=== PATIENT | male | born 1955 | race Two or more races ===

== ENCOUNTER 2017-01-27 17:43 | Emergency (ER) | payer SELFPAY ==
[~2017-01-27] VITALS: Ht 180.3 cm; Wt 77.1 kg
--- NOTE | 2017-01-27 17:56 | Emergency Room Report ---
History of Present Illness General Chief Complaint: General Complaint Source: EMS Present Illness HPI The pt is a 61 yo M BIBA from [place] [facility] [place] bizarrely. The patient does admit to a history of diabetes. Patient denies taking medications or using any drugs or alcohol. When asked why the patient is here, he states he has not eaten in one week. The patient denies any pain and denies other symptoms including nausea, vomiting, fever, chills, headache, abdominal pain, chest pain , shortness of breath. BS in the field was 126 Allergies: Coded Allergies: UNABLE TO ASSESS (Unverified , 01/27/17) Patient History Past Medical History: see triage record Pertinent Family History: none Reviewed Nursing Documentation: PMH: Agreed, PSxH: Agreed Nursing Documentation-PMH Past Medical History Deferred: Pt Cognitively Impaired Review of Systems All Other Systems: negative except mentioned in HPI Physical Exam Vital Signs Date Time Temp Pulse Resp B/P Pulse Ox O2 Delivery O2 Flow Rate FiO2 01/27/17 17:38 97.5 85 16 155/70 100 Room Air Sp02 EP Interpretation: reviewed, normal General Appearance: no apparent distress, alert, GCS 15, non-toxic Head: normocephalic, atraumatic Eyes: bilateral eye PERRL, bilateral eye normal inspection ENT: hearing grossly normal, normal pharynx, no angioedema, normal voice Neck: full range of motion, supple/symm/no masses Respiratory: chest non-tender, lungs clear, normal breath sounds, speaking full sentences Cardiovascular #1: regular rate, rhythm, no edema Musculoskeletal: back normal, gait/station normal, normal range of motion, non- tender Neurologic: alert, responsive, motor strength/tone normal, sensory intact, normal gait, speech normal Skin: normal color, no rash, warm/dry, well hydrated Lymphatic: no adenopathy Medical Decision Making PA Attestation Dr. [email or web address] is my supervising physician. Patient management was discussed with my supervising physician Diagnostic Impression: Primary Impression: Well controlled diabetes mellitus ER Course The pt is a 61 yo M BIBA from [place] bizarrely Differential diagnoses considered but not limited to suicidal ideation, depression, drug abuse, hypo/hyperglycemia PE: No apparent distress. Alert and responsive PERRL. EOMI. RRR. No MRG Lungs CTA bilat Abdomen: Normal appearance. Non distended. No ecchymosis. Normal BS. Non TTP. No McBurney point tenderness. No guarding. Skin is warm and dry, no rashes. BS in the field was 126 The pt is given food and states he is ready to go ER precautions given. Last Vital Signs Date Time Temp Pulse Resp B/P Pulse Ox O2 Delivery O2 Flow Rate FiO2 01/27/17 17:38 97.5 85 16 155/70 100 Room Air Status: improved Disposition: HOME, SELF-CARE Condition: Improved TIMOTHY RAZO Jan 27, 2017 17:56
[2017-01-27 19:05] VITALS: BP 140/75
== END 2017-01-27 19:05 | disposition home or self-care (01) ==
LOC: EDBD 17:43 → EMR 18:03
DX: E11.9 Type 2 diabetes mellitus without complications (principal)
CPT/HCPCS: 99283